=== PATIENT | male | born 1970 | race Caucasian/White ===

== ENCOUNTER 2019-05-13 03:44 | Emergency (ER) | payer OTHER ==
[~2019-05-13] VITALS: Ht 172.7 cm; Wt 79.4 kg
[2019-05-13] MEDS ORDERED: Prozac20 MG PO (04:05)
== END 2019-05-13 04:38 | disposition home or self-care (01) ==
LOC: ER 03:44
DX: F32.9 Major depressive disorder, single episode, unspecified (principal)
CPT/HCPCS: 99283